=== PATIENT | male | born 1985 | race Caucasian/White ===

== ENCOUNTER 2022-10-28 08:40 | Emergency (ER) | payer OTHER, SELFPAY ==
[2022-10-28 08:46] VITALS: BP 142/96; PULSE 75; RESP 18; TEMP 36.4; O2SAT 98; BMI 34.4
--- NOTE | 2022-10-28 08:56 | ED_ITS ---
HPI - General Adult General Chief complaint: Allergic Reaction Stated complaint: ALLERGIC REACTION Time Seen by Provider: 10/28/22 08:55 Source: patient Mode of arrival: walk-in History of Present Illness HPI narrative: Patient is a 37-year-old male who is presenting to the Emergency Room today with circumoral paresthesias after patient took a tablet of levothyroxine. Patient stated this happen once previously, approximately 2 years ago when he took levothyroxine. Patient took Benadryl and Pepcid prior to arrival. 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 Patient was getting up this morning, getting ready for work when this occurred. Patient was a home with his . Patient took 20 mg of Pepcid and 25 mg of Benadryl. Patient stated he had numbness and tingling around his lips, felt swelling and puffiness around his mouth, states that his thought that he loss his nasolabial fold with some mild swelling. Patient also developed urticaria to the right side of his neck, arms, hands. Patient had no significant swelling to lips, tongue, no scratchy throat, patient did not feel like he was losing his airway. Patient was tolerating secretions well. Patient currently looks better with swelling, urticaria has dissipated, swelling has dissipated around his lips, patient has his nasolabial fold when he arrived to the Emergency Room. Patient has no urticaria or rash when I performed history and physical, approximately 30 minutes after patient had arrived. . All systems are negative except as noted/marked. All systems reviewed and otherwise negative. . Nurses note and vital signs reviewed and patient is not hypoxic. General: The patient appears well and in no apparent distress. Patient is resting comfortably on cart. Patient is not toxic, lethargic, or listless Skin: Warm, dry, no pallor noted. There is no rash noted. No petechiae, purpura. No mucous membrane involvement, no urticaria, rash noted. Head: Normocephalic, atraumatic Eye: Normal conjunctiva, no drainage, EOMI. PERRL Ears, Nose, Mouth, and Throat: oral mucosa is moist. Nares patent. Mouth without vesicles. Patient has no swelling to his lips, tongue, no angioedema. Patient tolerating secretions well without difficulty Cardiovascular: Regular Rate and Rhythm, no murmur, gallop, rub Respiratory: Patient is in no distress, no accessory muscle use, lungs are clear to auscultation, no wheezing, rales or rhonchi Back: non-tender, no CVA tenderness bilaterally to percussion. No CT LS midline pain GI: soft, no tenderness to palpation, no masses appreciated. No rebound, guarding, or rigidity noted. No flank pain bilateral, No distention Musculoskeletal: Patient has full range of motion of all of the extremities, no motor, sensory, or focal neurological deficits Neurological: A&O x3, normal speech Psychiatric: Cooperative Related Data Home Medications Medication Instructions Recorded Confirmed levothyroxine 100 mcg tablet 188 mcg PO [id number] 10/28/22 10/28/22 Previous Rx's Medication Instructions Recorded epinephrine 0.3 mg/0.3 mL 0.3 mg (0.3 mL) IM Q10M PRN 10/28/22 injection, auto-injector (EpiPen) anaphylaxis #2 ea prednisone 50 mg tablet 50 mg PO DAILY 5 days #5 tabs 10/28/22 Allergies Allergy/AdvReac Type Severity Reaction Status Date / Time bee pollen AdvReac Intermediate Verified 10/28/22 08:45 [facility] PFS Social History Smoking status: Current every day smoker Exam Constitutional Vital Signs, click to edit/add: Last Vital Signs Temp 97.6 F 10/28/22 08:46 Pulse 75 10/28/22 08:46 Resp 18 10/28/22 08:46 BP 142/96 H 10/28/22 08:46 Pulse Ox 98 10/28/22 08:46 O2 Del Method Room Air 10/28/22 08:46 Course Vital Signs Vital signs: Vital Signs Temperature 97.6 F 10/28/22 08:46 Pulse Rate 75 10/28/22 08:46 Respiratory Rate 18 10/28/22 08:46 Blood Pressure 142/96 H 10/28/22 08:46 Pulse Oximetry 98 10/28/22 08:46 Oxygen Delivery Method Room Air 10/28/22 08:46 Temperature 97.6 F 10/28/22 08:46 Pulse Rate 75 10/28/22 08:46 Respiratory Rate 18 10/28/22 08:46 Blood Pressure 142/96 H 10/28/22 08:46 Pulse Oximetry 98 10/28/22 08:46 Oxygen Delivery Method Room Air 10/28/22 08:46 Medical Decision Making [facility] Narrative Medical decision making narrative: EKG interpretation. Normal sinus rhythm at 67 beats a minute. Normal axis deviation. Artifact noted. QTC of 398. Patient was monitored for 2 hours. Patient was given 1 L of IV fluid. Patient was given a small dose of Pepcid along with site Medrol. Dictation was done at bedside the patient is a follow-up with twister doffer. Cleo ent was given a 5 day course of prednisone. Patient was given a prescription for EpiPen to have just in case. Patient was instructed went to use the EpiPen, especially if to organ systems are involved. Patient will use the prednisone if his rash or symptoms return tonight or tomorrow, otherwise he'll not take it and hold onto the prescription. Patient will follow-up with PCP. Patient in with a comfortable going home. No questions at discharge. Patient was observed for 2 hours. Discharge Plan Discharge Chief Complaint: Allergic Reaction Clinical Impression: Urticaria, Allergic reaction Patient Disposition: Home, Self-Care Condition: Fair Prescriptions / Home Meds: New prednisone 50 mg tablet 50 mg PO DAILY 5 Days Qty: 5 0RF epinephrine [EpiPen] 0.3 mg/0.3 mL auto-injector 0.3 mg IM Q10M PRN (Reason: anaphylaxis) Qty: 2 0RF Rx Instructions: for 2 doses No Action levothyroxine 100 mcg tablet 188 mcg PO [id number] Instructions: Urticaria (ED), Acute Rash (ED), General Allergic Reaction (ED), Allergy Testing (ED) Additional Instructions: Use Claritin or Zyrtec in the morning along with Pepcid. Use is Benadryl, Claritin, Zyrtec and Pepcid at nighttime. Is very safe to stop taking the levothyroxin and follow-up with here prescriber for further recommendations on whether you continue to take the medication or switching to a different brand name sinus generic name. However, urine high doses of the levothyroxine any need that as well, we had discussed the risk and benefits of continuing to take her medication or not. Use EpiPen if your having significant difficulty breathing, Significant swelling to your tongue, lips, if he ever rash, or if he had to organ systems involved. If rash, paresthesias circumorally return, Today or tomorrow, start taking the 5 day burst of prednisone as well. If the rash and sensation does not return tonight or tomorrow, hold on to the prednisone to use in the future if needed. Is imperative the follow-up with PCP in follow-up with the twister doffer for additional testing. Stand Alone Forms: Portal Instructions Referrals: Teresa Mensah [Primary Care Provider] - 1 week
[2022-10-28] MEDS: 0.9 % SODIUM CHLORIDE 1,000 ML 1000 ML IV (09:08)
[2022-10-28] MEDS: FAMOTIDINE/PF 20 MG/2 ML VIAL IV (09:08)
[2022-10-28] MEDS: METHYLPREDNISOLONE SOD SUCC PF 125 MG/2 ML VIAL IVP (09:08)
--- NOTE | 2022-10-28 10:08 | ECG_ITS ---
[facility] Test Date: 2022-10-28 Pat Name: MITZY JASSO Department: Room: - Gender: Male Internal Grinder: : 1985 Requested By: [id number] Order Number: [id number] Reading MD: NANCY FLANAGAN Measurements Intervals Alexander Rate: 67 P: 17 FL: 152 QRS: 54 QRSD: 82 T: 19 QT: 382 QTc: 398 Interpretive Statements 1100 Sinus rhythm 8102 Low QRS voltage in chest leads 9120 atypical ECG No previous ECG available for comparison Electronically Signed On 10-29-2022 12:34:27 EDT by NANCY FLANAGAN
[2022-10-28 11:08] VITALS: BP 130/88; PULSE 58; RESP 15; O2SAT 96
== END 2022-10-28 11:11 | disposition home or self-care (01) ==
PROVIDERS: Emergency Provider Emergency Medicine; PCP Nurse Practitioner
DX: L50.0 Allergic urticaria (principal); T38.1X5A Adverse effect of thyroid hormones and substitutes, initial encounter; F17.210 Nicotine dependence, cigarettes, uncomplicated
CPT/HCPCS: 93005; 96374; 96375; 99284; J2930

== ENCOUNTER 2023-01-09 00:10 | Emergency (ER) | payer OTHER, SELFPAY ==
[2023-01-09 00:14] VITALS: BP 152/92; PULSE 105; RESP 16; TEMP 36.8; O2SAT 97; BMI 35.3
[2023-01-09 00:25] VITALS: O2SAT 97
--- NOTE | 2023-01-09 00:25 | PC.NURSE ---
Pt reports swelling in lips and eyes, fullness in ears. Pt has had multiple episodes of allergic rx or angioedema in the past. Pt took Benadryl and Pepcid [employer], reports increased relief since taking medication at home. Upon assessment pts throat is red and swollen, pt moving air sufficiently. Pt denies SOB.
--- NOTE | 2023-01-09 00:38 | ED.ALLEREA1 ---
HPI - Allergic Reaction General Chief complaint: Allergic Reaction Stated complaint: FACE SWELLING Time Seen by Provider: 01/09/23 00:29 Source: patient Mode of arrival: walk-in History of Present Illness HPI narrative: history of allergic reactions with tingling of his hands and swelling of his lips. Has occurred 4 times in the past. No clear etiology. Symptoms started tonight including swelling of his lips. He took 100mg benadry and 40 mg pepcid. Had his epi pen ready but did not use. Now that he is here the swelling has decreased but not resolve. States he is now able to talk normally and no longer itching. No dyspnea or joint pain. his only maintenance medication is Levothyroxine complaint: Reports allergic reaction Related Data Home Medications Medication Instructions Recorded Confirmed levothyroxine 100 mcg tablet 188 mcg PO [id number] 10/28/22 01/09/23 Previous Rx's Medication Instructions Recorded epinephrine 0.3 mg/0.3 mL 0.3 mg (0.3 mL) IM Q10M PRN 10/28/22 injection, auto-injector (EpiPen) anaphylaxis #2 ea Allergies Allergy/AdvReac Type Severity Reaction Status Date / Time bee pollen AdvReac Intermediate Verified 01/09/23 00:17 Review of Systems ROS Status of ROS 10 or more systems reviewed and unremarkable except as noted in history and below PFSH PFS Social History Smoking status: Never smoker Exam Constitutional Vital Signs, click to edit/add: Last Vital Signs Temp 98.2 F 01/09/23 00:14 Pulse 105 H 01/09/23 00:14 Resp 16 01/09/23 00:14 BP 152/92 H 01/09/23 00:14 Pulse Ox 97 01/09/23 00:25 O2 Del Method Room Air 01/09/23 00:25 Common normals: no apparent distress, average body habitus, oriented x3, healthy appearing, alert and well nourished Eye Common normals: EOMs intact bilaterally and conjunctivae normal Respiratory Common normals: normal respiratory effort, no retractions, no use of accessory muscles and clear to auscultation bilaterally Cardio Common normals: regular rate, regular rhythm, S1 normal heart sound and S2 normal heart sound Extremity Common normals: normal to inspection and full ROM Neuro Common normals: oriented x3, CN's II-XII intact bilaterally, moves all extremities and no focal motor deficits Psych Appearance: grossly normal Course Vital Signs Vital signs: Vital Signs Temperature 98.2 F 01/09/23 00:14 Pulse Rate 105 H 01/09/23 00:14 Respiratory Rate 16 01/09/23 00:14 Blood Pressure 152/92 H 01/09/23 00:14 Pulse Oximetry 97 01/09/23 00:14 Oxygen Delivery Method Room Air 01/09/23 00:14 Temperature 98.2 F 01/09/23 00:14 Pulse Rate 105 H 01/09/23 00:14 Respiratory Rate 16 01/09/23 00:14 Blood Pressure 152/92 H 01/09/23 00:14 Pulse Oximetry 97 01/09/23 00:25 Oxygen Delivery Method Room Air 01/09/23 00:25 MDM - Allergic Reaction MDM Narrative Medical decision making narrative: patient presents with acute systemic allergic reaction with tingling of his hands and swelling of his lips. He treated himself with benadryl and pepcid. By the time he arrived to the department his swelling has decreased significantly and his speech had returned to normal. No rash is present at this time. Given dose of solumedrol in the department and discharged to follow up with his doctor Discharge Plan Discharge Chief Complaint: Allergic Reaction Clinical Impression: Allergic reaction Patient Disposition: Home, Self-Care Prescriptions / Home Meds: No Action levothyroxine 100 mcg tablet 188 mcg PO [id number] epinephrine [EpiPen] 0.3 mg/0.3 mL auto-injector 0.3 mg IM Q10M PRN (Reason: anaphylaxis) Qty: 2 0RF Rx Instructions: for 2 doses Instructions: General Allergic Reaction (ED) Stand Alone Forms: Portal Instructions Referrals: Teresa Mensah NP [Primary Care Provider] - 1 week
[2023-01-09] MEDS: METHYLPREDNISOLONE SOD SUCC PF 125 MG/2 ML VIAL IVP (00:49)
[2023-01-09 01:02] VITALS: PULSE 88; RESP 16; O2SAT 98
[2023-01-09 01:19] VITALS: BP 140/80; PULSE 78; RESP 18; O2SAT 96
== END 2023-01-09 01:20 | disposition home or self-care (01) ==
PROVIDERS: Emergency Provider Internal Medicine; PCP Nurse Practitioner
DX: T78.40XA Allergy, unspecified, initial encounter (principal); X58.XXXA Exposure to other specified factors, initial encounter
CPT/HCPCS: 96374; 99284; J2930

== ENCOUNTER 2023-01-18 11:53 | Outpatient (OUT) | payer OTHER, SELFPAY ==
[2023-01-18 12:06] LABS: Basophils Absolute Auto 0.1 10^3/uL (0.0-0.1); Basophils Percent Auto 1.1 % (0.2-2.0); Eosinophils Absolute Auto 0.2 10^3/uL (0.0-0.7); Eosinophils Percent Auto 2.8 % (0.9-7.0); Hematocrit 40.4 % (42.0-54.0); Hemoglobin 13.8 g/dL (14.0-18.0); Immature Granulocytes Abs Auto 0.01 10^3/uL (0.00-0.03); Immature Granulocytes Pct Auto 0.2 % (0.0-0.5); Lymphocytes Absolute Auto 2.1 10^3/uL (1.2-3.8); Lymphocytes Percent Auto 38.7 % (20.5-60.0); Mean Corpuscular HGB Conc 34.2 g/dL (29.9-35.2); Mean Corpuscular Hemoglobin 31.7 pg (25.9-34.0); Mean Corpuscular Volume 92.7 fL (80.0-94.0); Mean Platelet Volume 9.3 fL (9.5-13.5); Monocytes Absolute Auto 0.5 10^3/uL (0.3-0.8); Neutrophils Absolute Auto 2.6 10^3/uL (1.4-6.5); Neutrophils Percent Auto 48.2 % (43.0-75.0); Platelet Count 212 10^3/uL (150-450); Red Blood Count 4.36 10^6/uL (4.70-6.10); Red Cell Distribution Width 11.9 % (11.0-15.0); White Blood Count 5.4 10^3/uL (4.0-11.0)
[2023-01-18 12:08] LABS: Bilirubin Urine NEGATIVE (NEGATIVE); Blood Urine NEGATIVE (NEGATIVE); Clarity Urine CLEAR (CLEAR); Color Urine LT. YELLOW (YELLOW); Glucose Urine UA NEGATIVE (NEGATIVE); Ketones Urine NEGATIVE (NEGATIVE); Leukocyte Esterase Urine NEGATIVE (NEGATIVE); Nitrite Urine NEGATIVE (NEGATIVE); Protein Urine NEGATIVE (NEG/TRACE); Specific Gravity Urine >=1.030 (1.005-1.025); Urobilinogen Urine 0.2 EU/dL (0.2-1.0)
[2023-01-18 12:09] LABS: Urine Microscopic Indicated YES
[2023-01-18 12:15] LABS: Bacteria Urine NONE SEEN #/HPF (NONE SEEN); Cast Seen? NONE SEEN #/LPF (NONE SEEN); Crystals Seen? None Seen #/HPF (None Seen); Mucus Urine NONE SEEN (NONE SEEN); RBC Urine NONE SEEN #/HPF (0-2); Squamous Epithelial Cell Urine RARE #/LPF (NONE/RARE); Urine Culture Indicated NO; WBC Urine NONE SEEN #/HPF (NONE SEEN)
[2023-01-18 15:03] LABS: Alanine Aminotransferase 54 U/L (16-63); Albumin Globulin Ratio 1.2; Albumin Level 4.1 g/dL (3.4-5.0); Alkaline Phosphatase 83 U/L (46-116); Anion Gap 8.2; Aspartate Amino Transferase 25 U/L (15-37); BUN Creatinine Ratio 13.1; Bilirubin Direct 0.1 mg/dL (0.0-0.2); Bilirubin Total 0.5 mg/dL (0.2-1.0); Calcium 9.1 mg/dL (8.5-10.1); Carbon Dioxide 31.8 mmol/L (21.0-32.0); Chloride 102 mmol/L (98-107); Chol HDL Ratio 4.9; Cholesterol 210 mg/dL (<=200); Estimated GFR (African America >60 (>=60); Estimated GFR (Non-African Ame >60 (>=60); Globulin 3.5 g/dL; Glucose 101 mg/dL (74-106); HDL Cholesterol 43 mg/dL (40-60); Sodium 138 mmol/L (136-145); Thyroid Stimulating Hormone 6.297 uIU/mL (0.358-3.740); Total Protein 7.6 g/dL (6.4-8.2); Triglycerides 125 mg/dL (<=150)
== END 2023-01-18 11:54 | disposition home or self-care (01) ==
LOC: LAB 11:53
PROVIDERS: PCP Nurse Practitioner; Visit Provider Nurse Practitioner
DX: L50.9 Urticaria, unspecified (principal); E03.9 Hypothyroidism, unspecified; R33.9 Retention of urine, unspecified
CPT/HCPCS: 36415; 80048; 80061; 80076; 81001; 84439; 84443; 85025

== ENCOUNTER 2023-02-08 02:45 | Emergency (ER) | payer OTHER, SELFPAY ==
[2023-02-08 02:49] VITALS: BP 115/83; PULSE 94; RESP 16; TEMP 36.5; O2SAT 98
--- NOTE | 2023-02-08 02:51 | ED.GENADUL1 ---
HPI - General Adult General Chief complaint: Allergic Reaction Stated complaint: RASH ALLERGIC REACTION Time Seen by Provider: 02/08/23 02:48 History of Present Illness HPI narrative: This 37-year-old male who has had multiple episodes of ALLERGIC reactions to an unknown antigen presents for evaluation of hives with itching on his arms back and buttocks. He states that he was at the emergency department in [place] earlier this evening for an ALLERGIC reaction and was given Solu-Medrol, Pepcid, Benadryl and subcutaneous epinephrine. He was monitored for a period of time and was deemed safe for discharge home. On the way home from [place] to [place] he started developing hives again on his back and buttocks. He states he is tired and afraid to go to sleep because he is afraid his airway is going to close. He states his throat feels somewhat scratchy. He is not having a difficulty breathing or swallowing at this time. He is scheduled to see an environmental property assessor in several weeks. 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 He has not had any change in his diet or medications. He denies that he is under a lot of stress. He has recently been ill with nausea, vomiting and diarrhea. He is having some abdominal cramps at this time. He denies any chest pain. He does not drink or smoke. 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 He also states that he has recently been constipated and is now having diarrhea that is yellow and watery, he states it looks like C diff but does not have the same smell as C Diff. He denies any blood in his stool. Related Data Home Medications Medication Instructions Recorded Confirmed levothyroxine 100 mcg tablet 188 mcg PO [id number] 10/28/22 02/08/23 Previous Rx's Medication Instructions Recorded epinephrine 0.3 mg/0.3 mL 0.3 mg (0.3 mL) IM Q10M PRN 10/28/22 injection, auto-injector (EpiPen) anaphylaxis #2 ea Allergies Allergy/AdvReac Type Severity Reaction Status Date / Time bee pollen AdvReac Intermediate Verified 02/08/23 02:55 Review of Systems ROS Status of ROS 10 or more systems reviewed and unremarkable except as noted in history and below PFSH PFSH Social History Smoking status: Never smoker Exam Narrative Exam Narrative: Nurses note and vital signs reviewed and patient is not hypoxic. General:ALert, anxious, nontoxic male resting come to bland the stretcher, no respiratory distress, he is speaking in complete sentences Skin: Warm, dry, no pallor noted. Urticarial rash on left forearm, back and buttocks Head: Normocephalic, atraumatic Eye: Normal conjunctiva, no drainage, EOMI. PERRL Ears, Nose, Mouth, and Throat: oral mucosa is dry, there is no swelling of the tongue, uvula or pharyngeal soft tissues Neck: Supple, no stridor Cardiovascular: Regular Rate and Rhythm Respiratory: Patient is in no distress, no accessory muscle use, lungs are clear to auscultation, no wheezing, rales or rhonchi Back: non-tender, no CVA tenderness bilaterally to percussion. GI: Normal bowel sounds, no tenderness to palpation, no masses appreciated. No rebound, guarding, or rigidity noted. Musculoskeletal: The patient has no evidence of calf tenderness, no pitting edema, symmetrical pulses noted bilaterally Neurological: A&O x4, normal speech Psychiatric: Cooperative Constitutional Vital Signs, click to edit/add: Last Vital Signs Temp 97.7 F 02/08/23 02:49 Pulse 94 H 02/08/23 02:49 Resp 16 02/08/23 02:49 BP 115/67 02/08/23 04:30 Pulse Ox 98 02/08/23 02:49 O2 Del Method Room Air 02/08/23 02:49 Course Vital Signs Vital signs: Vital Signs Temperature 97.7 F 02/08/23 02:49 Pulse Rate 94 H 02/08/23 02:49 Respiratory Rate 16 02/08/23 02:49 Blood Pressure 115/83 02/08/23 02:49 Pulse Oximetry 98 02/08/23 02:49 Oxygen Delivery Method Room Air 02/08/23 02:49 Temperature 97.7 F 02/08/23 02:49 Pulse Rate 94 H 02/08/23 02:49 Respiratory Rate 16 02/08/23 02:49 Blood Pressure 115/67 02/08/23 04:30 Pulse Oximetry 98 02/08/23 02:49 Oxygen Delivery Method Room Air 02/08/23 02:49 Medical Decision Making [facility] Narrative Medical decision making narrative: 37-year-old male who has recently been seen multiple times for idiopathic ALLERGIC reactions requiring IV steroids, Pepcid and Benadryl as well as several doses of subcutaneous epinephrine presents for evaluation of generalized hives. He has been having ALLERGIC reactions for the past several years. The etiology of these ALLERGIC reactions has not been elucidated. He is not taking any new medications, he has no new foods that he has been eating and denies excessive stress in his life. The patient was recently seen earlier for an ALLERGIC reaction at [facility] and was medicated with steroids and Pepcid. He had RAD taken Benadryl at home once he started having an ALLERGIC reaction earlier in the evening. On his way home from [facility] he states that his throat felt kind of scratching he was concerned that he may be developing angioedema. His oral airway is stable with no swelling of the tongue, uvula or pharyngeal soft tissues. His mucous membranes are dry likely related to the Benadryl he has been receiving. He did have some resolving hives on his back and buttocks and left arm. While in the emergency department the hives became more severe encompassing both arms and hands started swelling. He was given 0.3 mg of subcutaneous epinephrine at that time with clinical improvement. He was also medicated in emergency department with Decadron, IV Pepcid and IV Benadryl. Routine labs are reviewed. He has a white count of 16. This is likely related to the IV steroids he has been receiving but he has also been having diarrhea. I ordered a noncontrast CT scan of the abdomen and pelvis to further evaluate due to the diarrhea and ALLERGIC reaction. His electrolytes are normal with the exception of an elevated glucose at 174, likely related to his recent steroid administration. Respiratory panel was added on as viral illnesses can cause the etiology of ALLERGIC/anaphylactoid reactions and he is a nurse. He has remained hemodynamically stable with no airway compromise. He has an appointment with an environmental property assessor in several weeks. CT scan of the abd/pelvis w/o contrast shows some urinary wall thickening but is otherwise normal. UA does not show any sign of active infection. On re-evaluation, his symptoms are continually improving, he still has no airway compromise or swelling, lungs are clear, hives are resolving. He does admit that the majority of his 'allergic' reactions are related to using the bathroom to have a bowel movement. He denies a history of encopresis as a child or other GI related illnesses. I encouraged him to keep a very detailed diary of any time he has an episode of hives or allergic reactions and the situation as well as environmental triggers. Respiratory panel, despite the patients diarrhea is normal. Medical Records Medical records narrative: [facility] [place] [id number] CT Scan Report Signed Patient: MITZY JASSO MR#: [id number] : 1985 Acct:[id number] Age/Sex: 37 / M ADM Date: 02/08/23 Loc: ER Attending Dr: Ordering Physician: Alessandra Davenport Date of Service: 02/08/23 Procedure(s): CT abdomen pelvis wo con Accession Number(s): [id number] cc: Teresa Mensah [employer]~ [facility] [place] [address] Patient Name: MITZY JASSO MRN: [id number] date: 1985 Sex: M Assigned Patient Location: ER Current Patient Location: ER Accession/Order Number: [id number] Exam Date: 02/08/2023 04:11 Report Date: 02/08/2023 04:59 At the request of: ALESSANDRA DAVENPORT Procedure: CT abdomen pelvis wo con EXAM: CT abdomen pelvis wo con HISTORY: abd bloating COMPARISON: None. TECHNIQUE: Noncontrast axial CT images through the abdomen and pelvis were obtained with coronal and sagittal reformats. Dose reduction techniques were achieved by using automated exposure control and/or adjustment of mA and/or kV according to patient size and/or use of iterative reconstruction technique. FINDINGS: A calcified granuloma is seen in the right lower lobe. A calcified granuloma is seen in the left lower lobe. Abdomen: Please note that the sensitivity for detection of focal lesions or vascular disease is markedly reduced without intravenous contrast. The liver and spleen are unremarkable. There is no intra or extrahepatic biliary duct dilatation. The gallbladder is unremarkable. There punctate nonobstructive renal calculi. Otherwise, the pancreas, adrenal glands, kidneys, and bowel loops, including the appendix, are unremarkable. There is no mesenteric or retroperitoneal lymphadenopathy. Pelvis: The bladder demonstrates wall thickening with perivesicular fat stranding. The rectum is unremarkable. There is no iliac or inguinal lymphadenopathy. Bone windows show no aggressive osseous lesions. CT/CT abdomen pelvis wo con IMPRESSION: 1. No evidence of bowel obstruction. 2. Nonobstructive renal calculi. 3. Normal appendix. 4. Urinary bladder wall thickening. Please correlate with urinalysis for infection. Electronically authenticated by: Francine CHEEMA Date: 02/08/2023 04:59 Lab Data Labs: Lab Results 02/08/23 02/08/23 02/08/23 Range/Units 02:50 03:50 04:00 WBC 16.0 H (4.0-11.0) 10^3/uL RBC 5.38 (4.70-6.10) 10^6/uL Hgb 17.0 (14.0-18.0) g/dL Hct 49.3 (42.0-54.0) % MCV 91.6 (80.0-94.0) fL MCH 31.6 (25.9-34.0) pg MCHC 34.5 (29.9-35.2) g/dL RDW 11.9 (11.0-15.0) % Plt Count 345 (150-450) 10^3/uL MPV 9.7 (9.5-13.5) fL Neut % (Auto) 88.2 H (43.0-75.0) % Lymph % (Auto) 7.1 L (20.5-60.0) % Smith % (Auto) 3.9 (1.7-12.0) % Eos % (Auto) 0.4 L (0.9-7.0) % Baso % (Auto) 0.1 L (0.2-2.0) % Neut # (Auto) 14.1 H (1.4-6.5) 10^3/uL Lymph # (Auto) 1.1 L (1.2-3.8) 10^3/uL Smith # (Auto) 0.6 (0.3-0.8) 10^3/uL Eos # (Auto) 0.1 (0.0-0.7) 10^3/uL Baso # (Auto) 0.0 (0.0-0.1) 10^3/uL Abs Immat Gran (auto) 0.05 H (0.00-0.03) 10^3/uL Imm/Tot Granulo (auto) 0.3 (0.0-0.5) % Sodium 141 (136-145) mmol/L Potassium 3.8 (3.5-5.1) mmol/L Chloride 104 (98-107) mmol/L Carbon Dioxide 27.5 (21.0-32.0) mmol/L Anion Gap 13.3 BUN 11.0 (7.0-18.0) mg/dL Creatinine 1.09 (0.70-1.30) mg/dL Est GFR ( Amer) >60 (>=60) Est GFR (Non-Af Amer) >60 (>=60) BUN/Creatinine Ratio 10.1 Glucose 174 H (74-106) mg/dL Calcium 9.0 (8.5-10.1) mg/dL Urine Color Yellow (YELLOW) Urine Clarity Clear (CLEAR) Urine pH 5.5 (5.0-9.0) Ur Specific [place] >=1.030 A (1.005-1.025) Urine Protein Trace (NEG/TRACE) mg/dL Urine Glucose (UA) Negative (NEGATIVE) mg/dL Urine Ketones Trace A (NEGATIVE) mg/dL Urine Occult Blood Negative (NEGATIVE) Urine Nitrite Negative (NEGATIVE) Urine Bilirubin Small A (NEGATIVE) Urine Urobilinogen 1.0 (0.2-1.0) EU/dL Ur Leukocyte Esterase Negative (NEGATIVE) Urine RBC 0-2 (0-2) #/HPF Urine WBC 0-2 A (NONE SEEN) #/HPF Ur Squamous Epith Cells None seen (NONE/RARE) #/LPF Urine Crystals None seen (None Seen) #/HPF Urine Bacteria Small A (NONE SEEN) #/HPF Urine Casts None seen (NONE SEEN) #/LPF Urine Mucus Large A (NONE SEEN) Adenovirus (PCR) Not detected (NOT DETECTE) C. pneumoniae DNA (PCR) Not detected (NOT DETECTE) Coronavirus Type OC43 Not detected (NOT DETECTE) Coronavirus Type HKU1 Not detected (NOT DETECTE) Coronavirus Type 229E Not detected (NOT DETECTE) Coronavirus Type NL63 Not detected (NOT DETECTE) Human Metapneumovir PCR Not detected (NOT DETECTE) M. pneumoniae (PCR) Not detected (NOT DETECTE) Parainfluenza PCR Not detected (NOT DETECTE) Parainfluenza 2 (PCR) Not detected (NOT DETECTE) Parainfluenza 3 (PCR) Not detected (NOT DETECTE) Parainfluenza 4 (PCR) Not detected (NOT DETECTE) RSV (RT-PCR) Not detected (NOT DETECTE) Entero/Rhino (PCR) Not detected (NOT DETECTE) SARS-CoV-2 (PCR) Not detected (NOT DETECTE) Bordetella pertussis (PCR) Not detected (NOT DETECTE) B parapertussis DNA PCR Not detected (NOT DETECTE) Influenza Type A (PCR) Not detected (NOT DETECTE) Influenza Type B (PCR) Not detected (NOT DETECTE) Discharge Plan Discharge Chief Complaint: Allergic Reaction Clinical Impression: Urticaria, Allergic reaction Patient Disposition: Home, Self-Care Time of Disposition Decision: 05:32 Condition: Good Prescriptions / Home Meds: No Action levothyroxine 100 mcg tablet 188 mcg PO [id number] epinephrine [EpiPen] 0.3 mg/0.3 mL auto-injector 0.3 mg IM Q10M PRN (Reason: anaphylaxis) Qty: 2 0RF Rx Instructions: for 2 doses Instructions: Urticaria (ED), General Allergic Reaction (ED), Allergy Testing (ED) Stand Alone Forms: Portal Instructions Referrals: Teresa Mensah NP [Primary Care Provider] - 1 week
--- OUTSIDE RECORDS SUMMARY | 2023-02-08 02:51 | XMS_ITS | CCD ---
Author Name Unknown Address [address] [place] [address] Organization [facility] Care Team Providers Care Coal Digger Name Role Phone Alex Delgado Unavailable KIT Wallace Attending Provider NO FAMILY, PHYSICIAN Primary Care Provider Unava ilable SATHYA SMITH Primary Care Unavailable NGOC, AHMARaul Admitting Unavailable NGOC, AHMAD Consulting Unavailable ALLIE GROSSMAN Attending Unavailable ANNITA AGUILERA Attending Unavailable SATHYA SMITH Primary Care Unavailable ANNITA AGUILERA Admitting Unavailable ANNITA AGUILERA Consulting Unavailable TERESA SMITH Primary Care Physician TERESA SMITH Referring Unavailable Deven YATES Attending Unavailable TERESA SMITH Unavailable Allergies Allergy Classification Reported Allergen(s) Allergy Type Date of Onset Reaction(s) Facility (1 source) bee venom Drug allergy (disorder) 4 [facility] Repository (1 source) No Known Medication Allergies; Translations: [No Known Medication Allergies] Propensity to adverse reactions (disorder) [facility] Repository Medications Current Medications Medication Drug Class(es) Dates Sig (Normalized) Sig (Original) ketorolac tromethamine 10 mg oral tablet (1 source) Nonsteroidal Anti-inflammatory Drug, Cyclooxygenase Inhibitor Ketorolac Tromethamine 10 MG Oral for 4 Active Thyroxine (2 sources) l-Thyroxine Start: 04-18-2022 levothyroxine Refills(s) 0 Start Date: 04/18/22 Status: Ordered Levothroid Activ e methylPREDNISolone 4 mg oral tablet (1 source) Corticosteroid Start: 10-08-2020 Medrol 4 MG as directed Orally Oct, Active naproxen 500 mg delayed release oral tablet (1 source) Nonsteroidal Anti-inflammatory Drug take 1 tablet by mouth every twelve hours Naproxen 500 MG take 1 tablet by mouth every 12 hours for 30 Active traMADol hydrochloride 50 mg oral tablet (1 source) Opioid Agonist traMADol HCl 50 MG Oral for 4 Active Vitamin D (1 source) Vitamin D Active Problems Active Problems Problem Classification Problem Date Documented Date Episodic/Chronic Administrative/socia l admission (5 sources) Encounter for pre-employment examination; Translations: [Dietary counseling and surveillance] Onset: 2 Episodic Disorders of lipid metabolism (1 source) Hyperlipidemia 04-15-2022 Chronic Genitourinary symptoms and ill-defined conditions (2 sources) Nocturia; Translations: [Nocturia] Onset: 3 Episodic Joint disorders and dislocations; trauma-related (2 sources) Internal derangement of right knee; Translations: [Unspecified internal derangement of right knee] Onset: 1 Resolved: 1 Chronic Other male genital disorders (2 sources) Pain in testicle; Translations: [Testicular pain, unspecified] Onset: 3 Episodic Other non-traumatic joint disorders (1 source) Joint pain 04-15-2022 Episodic Other nutritional; endocrine; and metabolic disorders (1 source) Obesity, unspecified; Translations: [OBESITY UNSPECIFIED] Onset: 2 Chronic Other screening for suspected conditions (not mental disorders or infectious disease) (1 source) Hypotestosteronism 04-15-2022 Episodic Residual codes; unclassified (1 source) Obstructive sleep apnea syndrome 04-15-2022 Chronic Thyroid disorders (5 sources) Hypothyroidism, unspecified; Translations: [Hypothyroidism] Onset: 2 Chronic Past or Other Problems Problem Classification Problem Date Documented Da te Episodic/Chronic Other connective tissue disease (1 source) Patellar tendinitis, right knee Onset: 12-28-2020 Resolved: 12-28-2020 Episodic Other non-traumatic joint disorders (1 source) Pain in right knee Onset: 12-28-2020 Resolved: 12-28-2020 Episodic Results Test Name Value Interpretation Reference Range Facility RAD - Ultrasound Reporton RAD - Ultrasound Report [id number] #1.00CD:127 Normal [facility] Ambulatory Visit Summaryon 0 04-18-2022 Ambulatory Visit Summary MITZY JASSO :1985 Visit Date:04/18/2022 Ambulatory Visit Instructions Your Diagnosis Nocturia Testicular pain Tests Performed Urnls Dip Stick Auto w/o Microscopy POC 83248 Your Care Team Attending Physician - Deven YATES MD Primary Care Physician - TERESA SMITH CNP Referring Physician - TERESA SMITH CNP This Is Your Medications List Contact prescribing physician if questions or concerns levothyroxine Discharge Vitals Blood Pressure 138/74 Height 184 cm Height 72 in Weight 119 kg Weight 261.8 lb BMI 35.15 What to do next You Need to Schedule the Following Appointments Follow Up with PAULINE NAVAS, LANA Aldridge When: Where: [facility] [address] [place] [address]- Medications What When Instructions Unchanged levothyroxine Contact prescribing physician if questions or concerns Test Results Urnls Dip Stick Auto w/o Microscopy POC 19397 (04/18/2022) Bilirubin Urine Dipstick - Negative Blood Urine Dipstick - Negative Glucose Urine Dipstick - Negative Ketones Urine Dipstick - Negative Leukocytes Urine Dipstick - Negative Nitrite Urine Dipstick - Negative Protein Urine Dipstick - Trace Specific Stroud Urine Dipstick - >=1.030 Urine Appearance Urine Dipstick - Clear Urine Color Urine Dipstick - Yellow Urobilinogen Urine Dipstick - Normal 0.2-1 EU/dl pH Urine Dipstick - 5.5 Allergies No Known Medication Allergies Problems Ongoing - Any problem that you are currently receiving treatment for. Arthralgia Hyperlipidemia Hypothyroidism Nocturia Obstructive sleep apnea Testicular pain Testosterone deficiency Education Materials Testicular Self-Exam A self-examination of your testicles (testicular self-exam) involves looking at and feeling your testicles for abnormal lumps or swelling. Several things can cause swelling, lumps, or pain in your testicles. Some of these causes are: ? Injuries. ? Inflammation. ? Infection. ? Buildup of fluids around your testicle (hydrocele). ? Twisted testicles (testicular torsion). ? Testicular cancer. Why is it important to do a testicular self-exam? Self-examination of the testicles and the left and right groin areas may be recommended if you are at risk for testicular cancer. Your groin is where your lower abdomen meets your upper thighs. You may be at risk for testicular cancer if you have: ? An undescended testicle (cryptorchidism). ? A history of previous testicular cancer. ? A family history of testicular cancer. How to do a testicular self-exam The testicles are easiest to examine after a warm bath or shower. They are more difficult to examine when you are cold. This is because the muscles attached to the testicles retract and pull them up higher or into the abdomen. A normal testicle is egg-shaped and feels firm. It is smooth and not tender. The spermatic cord can be felt as a firm, spaghetti-like cord at the back of your testicle. Look and feel for changes ? Stand and hold your penis away from your body. ? Look at each testicle to check for lumps or swelling. ? Roll each testicle between your thumb and forefinger, feeling the entire testicle. Feel for: ? Lumps. ? Swelling. ? Discomfort. ? Check the groin area between your abdomen and upper thighs on both sides of your body. Look and feel for any swelling or bumps that are tender. These could be enlarged lymph nodes. Contact a health care provider if: ? You find any bumps or lumps, such as a small, hard, pea-sized lump. ? You find swelling, pain, or soreness. ? You see or feel any other changes in your testicles. Summary ? A self-examination of your testicles (testicular self-exam) involves looking at and feeling your testicles for any changes. ? Self-examination of the testicles and the left and right groin areas may be recommended if you are at risk for testicular cancer. ? You should check each of your testicles for lumps, swelling, or discomfort. ? You should check for swelling or tender bumps in your groin area between your lower abdomen and upper thighs. This information is not intended to replace advice given to you by your health care provider. Make sure you discuss any questions you have with your health care provider. Document Released: 05/01/2001 Document Revised: 05/16/2019 Document Reviewed: 12/19/2016 Elsevier Patient Education ? 2019 [employer]. Normal [facility] Patient Educationon 04-19-19 Patient Education Urology Testicular Self-Exam A self-examination of your testicles (testicular self-exam) involves looking at and feeling your testicles for abnormal lumps or swelling. Several things can cause swelling, lumps, or pain in your testicles. Some of these causes are: ? Injuries. ? Inflammation. ? Infection. ? Buildup of fluids around your testicle (hydrocele). ? Twisted testicles (testicular torsion). ? Testicular cancer. Why is it important to do a testicular self-exam? Self-examination of the testicles and the left and right groin areas may be recommended if you are at risk for testicular cancer. Your groin is where your lower abdomen meets your upper thighs. You may be at risk for testicular cancer if you have: ? An undescended testicle (cryptorchidism). ? A history of previous testicular cancer. ? A family history of testicular cancer. How to do a testicular self-exam The testicles are easiest to examine after a warm bath or shower. They are more difficult to examine when you are cold. This is because the muscles attached to the testicles retract and pull them up higher or into the abdomen. A normal testicle is egg-shaped and feels firm. It is smooth and not tender. The spermatic cord can be felt as a firm, spaghetti-like cord at the back of your testicle. Look and feel for changes ? Stand and hold your penis away from your body. ? Look at each testicle to check for lumps or swelling. ? Roll each testicle between your thumb and forefinger, feeling the entire testicle. Feel for: ? Lumps. ? Swelling. ? Discomfort. ? Check the groin area between your abdomen and upper thighs on both sides of your body. Look and feel for any swelling or bumps that are tender. These could be enlarged lymph nodes. Contact a health care provider if: ? You find any bumps or lumps, such as a small, hard, pea-sized lump. ? You find swelling, pain, or soreness. ? You see or feel any other changes in your testicles. Summary ? A self-examination of your testicles (testicular self-exam) involves looking at and feeling your testicles for any changes. ? Self-examination of the testicles and the left and right groin areas may be recommended if you are at risk for testicular cancer. ? You should check each of your testicles for lumps, swelling, or discomfort. ? You should check for swelling or tender bumps in your groin area between your lower abdomen and upper thighs. This information is not intended to replace advice given to you by your health care provider. Make sure you discuss any questions you have with your health care provider. Document Released: 05/01/2001 Document Revised: 05/16/2019 Document Reviewed: 12/19/2016 [employer] Patient Education ? 2019 [employer]. [facility] Physician Referralon 023 Physician Referral [id number] #1.00CD:127 Normal [facility] Urology Office/Clinic Noteon 04-18-2022 Urology Office/Clinic Note Chief Complaint Pt is here to discusss urinary issues HPI Staff Patient is a referral from [facility] for Erectile dysfunction. Patient states he tried a cream on his penis just to try in the March and it made him numb for 5 days. Patient states he tried used it just for fun. Patient states he really does not need any meds for ED. He just wants to talk about urinary issues and testicle pain. Patient states testicle pain is on the bottom of testicles and started over a year ago. No injury's. Patient states also he urinates 5x a night. Patient states nocturia started 5 months ago. Dysuria: no Incomplete bladder emptying: no Hematuria: no Frequency: every 2 hours Urgency: no Nocturia: 5x night Stream: strong Leaking: no Post void dripping: no Wearing pads/ Depends: no Urge incontinence: no Stress incontinence: no Incontinence without Sensory Awareness: no Abdominal pain: no Flank pain: no Sexual complaints: none History of Present Illness Tests reviewed: reviewed UA, referral records. I have reviewed the previous health record information and history for this patient from Teresa Thomas CNP. I have reviewed and verified the staff HPI to be accurate for this encounter. There have been no associated fever, chills, flank pain, or blood in the urine. Denies any urinary infections since last encounter. Review of Systems PHQ Score Initial Depression Screen Score: 0 ROS - Provider Constitutional: denies weight loss, denies hot flashes. Eyes: denies eye problems. Gastrointestinal: denies nausea, denies vomiting. Cardiovascular: denies chest pain or angina. Integumentary: no dryness Musculoskeletal: denies musculoskeletal symptoms. ENMT: denies otolaryngeal symptoms. Respiratory: no shortness of breath. Heme/Lymph: denies easy bleeding tendency, denies easy bruising tendency. Psychiatric: no confusion, no anxiety. Genitourinary: See HPI. Physical Exam Vitals & Measurements BP: 138/74 HT: 72 in HT: 184 cm WT: 119 kg WT: 261.8 lb BMI: 35.15 General Appearance: alert, no distress, well nourished, well developed male. Head: normocephalic . Eyes: normal orbit and globe. ENMT: normal examination of external ears. Chest: Lungs CTA, respirations non labored. Cardiovascular: regular rate and rhythm. Abdomen: soft, non distended, no tenderness, no mass or organomegaly, no hernia. Genitourinary: left epididymis a little tender. Mild hydrocele. Flank Pain: none. Bladder: nonpalpable. Penis: normal shaft, normal glans. Lymph Nodes: unremarkable palpation of the cervical area. Skin: warm, dry, no bruising. Psychiatric: cooperative, affect appropriate for age, normal judgement, euthymic mood. Assessment/Plan 1. Nocturia (R35.1: Nocturia) Mitzy is a 37 yo male new patient referred by Teresa Thomas CNP for ED. UA today negative for blood and infection. Pt states he is not here for ED. Tried lasting cream in March, made his penis numb for 5 days. Also c/o nocturia and testicular pain. Good stream, empties well. Nocturia 2-5x/night, large voids. Still gets up at least twice when he withholds fluids. Voids q1-2hr during the day. Does not drink a lot of fluids during the day. Urinary complaints started 6 mos ago. 2. Testicular pain (N50.819: Testicular pain, unspecified) Ongoing for 6 months. Has resonating pain in testicles not the scrotum, varies left and right side. Denies pain with urination or ejaculation. Discussed scrotal US, if abnormal, possible tx with abx. PE: left epididymis a little tender. Mild hydrocele. Follow up after US or sooner if needed. Pt understands and agrees with plan. -scrotal US Follow-up With When Contact Information Deven YATES MD, URL [facility] [address] [place] [address]- Additional Instructions: schedule scrotal us Patient Education Testicular Self-Exam I, Crissy Bella, personally scribed for Dr. Yates on 04/18/2022 11:31:52. . Documentation recorded by the scribe, Crissy Bella, accurately reflects the services(s) I performed and decisions made by me. Authenticated by Dr. Yates on 04/18/2022 11:40:24. Problem List/Past Medical History Ongoing Arthralgia Hyperlipidemia Hypothyroidism Nocturia Obstructive sleep apnea Testicular pain Testosterone deficiency Historical No qualifying data Medications levothyroxine Allergies No Known Medication Allergies Social History Tobacco Never (less than 100 in lifetime) Tobacco Use:. Never Smokeless Tobacco Use:., 04/18/2022 Family History Cancer: Mother. Diabetes mellitus type 2: Father. Heart disease: Mother. Hypertension: Mother. Lab Results Ambulatory Point of Care Results Bilirubin Urine Dipstick: Negative (04/18/22 10:59:00) Blood Urine Dipstick: Negative (04/18/22 10:59:00) Glucose Urine Dipstick: Negative (04/18/22 10:59:00) Ketones Urine D (more content not included)... Normal [facility] Comment on above: Result Comment: Elec tronically Signed By: Deven YATES MD\.br\Date and Time Signed: 04/18/22 11:40 EDT\.br\Electronically Co-Signed By: Crissy Bella\.br\Date and Time Co-Signed: 04/18/22 11:32 EDT QUANTIFERON TB GOLD PLUSon 0 02-16-2022 QuantiFERON Criteria Comment Normal [facility] Comment on above: Result Comment: Lester tiFERON-TB Gold Plus is a qualitative indirect test for M tuberculosis infection (including disease) and is intended for use in conjunction with risk assessment, radiography, and other medical and diagnostic evaluations. The QuantiFERON-TB Gold Plus result is determined by subtracting the Nil value from either TB antigen (Ag) value. The Mitogen tube serves as a control for the test. Performed By: #### Q NTTB #### [facility] [address] [place] [address] Dr. Christina Cowart QuantiFERON Incubation Incubation performed. Normal [facility] Comment on above: Performed By: #### Q NTTB #### [facility] [address] [place] [address] Dr. Christina Cowart QuantiFERON Mitogen Value >10.00 Normal [facility] Comment on above: Performed By: #### Q NTTB #### [facility] [address] [place] [address] Dr. Christina Cowart QuantiFERON Nil Value 0.04 IU/mL Normal [facility] Comment on above: Performed By: #### Q NTTB #### [facility] [address] [place] [address] Dr. Christina Cowart QuantiFERON TB1 Ag Value 0.04 IU/mL Normal [facility] Comment on above: Performed By: #### Q NTTB #### [facility] [address] [place] [address] Dr. Christina Cowart QuantiFERON TB2 Ag Value 0.04 IU/mL Normal [facility] Comment on above: Performed By: #### Q NTTB #### [facility] [address] [place] [address] Dr. Christina Cowart QuantiFERON-TB Gold Plus Negative Normal Negative [facility] Comment on above: Result Comment: No r esponse to M tuberculosis antigens detected. Infection with M tuberculosis is unlikely, but high risk individuals should be considered for additional testing (ATS/IDSA/CDC Clinical Practice Guidelines, 2017). The reference range is an Antigen minus Nil result of <0.35 IU/mL. Chemiluminescence immunoassay methodology Performed By: #### Q NTTB #### [facility] [address] [place] [address] Dr. Christina Cowart HEPATITIS B SURFACE ANTIBODY , QUANTon 02-15-2022 Hepatitis B Surf AB Quant 20.9 mIU/mL Normal Immunity>9.9 [facility] Comment on above: Result Comment: Stat us of Immunity Anti-HBs Level Inconsistent with Immunity 0.0 - 9.9 Consistent with Immunity >9.9 Performed By: #### H EPBSRF #### [facility] [address] [place] [address] Dr. Christina Cowart MMR IMMUNITYon 3 Mumps Abs, IgG 51.3 AU/mL Normal Immune >10.9 [facility] Comment on above: Result Comment: Nega tive <9.0 Equivocal 9.0 - 10.9 Positive >10.9 A positive result generally indicates past exposure to Mumps virus or previous vaccination. Performed By: #### M MRIMMU #### [facility] [address] [place] [address] Dr. Christina Cowart Rubella Antibodies, IgG 10.10 index Normal Immune >0.9 9 [facility] Comment on above: Result Comment: Non- immune <0.90 Equivocal 0.90 - 0.99 Immune >0.99 Performed By: #### M MRIMMU #### [facility] [address] [place] [address] Dr. Christina Cowart Rubeola Ab, IgG >300.0 Normal Immune >16.4 [facility] Comment on above: Result Comment: Nega tive <13.5 Equivocal 13.5 - 16.4 Positive >16.4 Presence of antibodies to Rubeola is presumptive evidence of immunity except when acute infection is suspected. Performed By: #### M MRIMMU #### [facility] [address] [place] [address] Dr. Christina Cowart VARICELLA IGG ABon 3 Varicella Zoster IgG 2374 index Normal Immune >165 [facility] Comment on above: Result Comment: Nega tive <135 Equivocal 135 - 165 Positive >165 A positive result generally indicates exposure to the pathogen or administration of specific immunoglobulins, but it is not indication of active infection or stage of disease. Performed By: #### V ROMAN #### [facility] [address] [address] [address] Christina Cowart Body fluid albumin measureme nt (mass/volume)Ordered By: Kae Wallace on 09-13-2021 Albumin (Body fld) [Mass/Vol] 4.2 g/dL 3.2-5.5 [facility] Cholesterol [Mass/volume] in Serum or PlasmaOrdered By: Kae Wallace on 09-13-2021 Cholesterol [Mass/Vol] 212 mg/dL 140-200 [facility] Comment on above: Chol less than 200 m g/dl low risk Chol 201-239 mg/dl borderline risk Chol 240 mg/dl and greater high risk Cholesterol in LDL Calc [Mas s/Vol]Ordered By: Kae Wallace on 09-13-2021 Cholesterol in LDL [Mass/Vol] 155 mg/dL 0-100 [facility] Comment on above: LDL ATP III CLASSIFI CATION LDL less than 100 mg/dL Optimal LDL 100-129 mg/dL Near or above optimal LDL 130-159 mg/dL Borderline high LDL 160-189 mg/dL High LDL greater than 189 mg/dL Very high Cholesterol in VLDL Calc [Ma ss/Vol]Ordered By: Kae Wallace on 09-13-2021 Cholesterol in VLDL [Mass/Vol] 21 mg/dL [facility] Comprehensive Metabolic Empo n 09-13-2021 Albumin [Mass/Vol] 4.2 g/dL Normal 3.2-5.5 [facility] Comment on above: Performed By: #### E BS LIPID, EBS CMP #### [facility] [address] [place] [address] [place] #### MMR IMMUN, VZIGG #### [facility] , Albumin/Globulin [Mass ratio] 1.5 {ratio} Normal [facility] Comment on above: Performed By: #### E BS LIPID, EBS CMP #### [facility] [address] [place] [address] [place] #### MMR IMMUN, VZIGG #### [facility] , ALP [Catalytic activity/Vol] 86 U/L Normal 32-92 [facility] Comment on above: Performed By: #### E BS LIPID, EBS CMP #### [facility] [address] [place] [address] [place] #### MMR IMMUN, VZIGG #### [facility] , ALT [Catalytic activity/Vol] 48 U/L Normal 10-60 [facility] Comment on above: Performed By: #### E BS LIPID, EBS CMP #### [facility] [address] [place] [address] [place] #### MMR IMMUN, VZIGG #### [facility] , AST [Catalytic activity/Vol] 35 U/L Normal 10-42 [facility] Comment on above: Performed By: #### E BS LIPID, EBS CMP #### [facility] [address] [place] [address] [place] #### MMR IMMUN, VZIGG #### [facility] , Bilirubin [Mass/Vol] 0.8 mg/dL Normal 0.3-1.2 [facility] Comment on above: Performed By: #### E BS LIPID, EBS CMP #### [facility] [address] [place] [address] [place] #### MMR IMMUN, VZIGG #### [facility] , Calcium [Mass/Vol] 9.6 mg/dL Normal 8.2-10.2 [facility] Comment on above: Performed By: #### E BS LIPID, EBS CMP #### [facility] [address] [place] [address] [place] #### MMR IMMUN, VZIGG #### [facility] , Chloride [Moles/Vol] 98 mmol/L Normal 95-114 [facility] Comment on above: Performed By: #### E BS LIPID, EBS CMP #### [facility] [address] [place] [address] [place] #### MMR IMMUN, VZIGG #### [facility] , CO2 [Moles/Vol] 27.9 mmol/L Normal 22.0-30.0 [facility] Comment on above: Performed By: #### E BS LIPID, EBS CMP #### [place] [address] [place] #### MMR IMMUN, VZIGG #### [facility] , Creatinine [Mass/Vol] 0.96 mg/dL Normal 0.64-1.27 [facility] Comment on above: Performed By: #### E BS LIPID, EBS CMP #### [place] [address] [place] #### MMR IMMUN, VZIGG #### [facility] , Estimated GFR ( Sharyn > 60 [facility] Comment on above: Result Comment: GFR estimated reference range: According to KDOQI guidelines, <60 ml/min/1.73m2 is sufficient to diagnose a patient with chronic kidney disease. Performed By: #### E BS LIPID, EBS CMP #### [place] [address] [place] #### MMR IMMUN, VZIGG #### [facility] , Estimated GFR (Non- Am > 60 [facility] Comment on above: Performed By: #### E BS LIPID, EBS CMP #### [place] [address] [place] #### MMR IMMUN, VZIGG #### [facility] , Globulin (S) [Mass/Vol] 2.8 g/dL Normal [facility] Comment on above: Performed By: #### E BS LIPID, EBS CMP #### [place] [address] [place] #### MMR IMMUN, VZIGG #### [facility] , Glucose [Mass/Vol] 95 mg/dL Normal 70-100 [facility] Comment on above: Performed By: #### E BS LIPID, EBS CMP #### [place] [address] [place] #### MMR IMMUN, VZIGG #### [facility] , Potassium [Moles/Vol] 4.2 mmol/L Normal 3.5-5.1 [facility] Comment on above: Performed By: #### E BS LIPID, EBS CMP #### [facility] [address] [place] [address] [place] #### MMR IMMUN, VZIGG #### [facility] , Protein [Mass/Vol] 7.0 g/dL Normal 6.1-7.9 [facility] Comment on above: Performed By: #### E BS LIPID, EBS CMP #### [facility] [address] [place] [address] [place] #### MMR IMMUN, VZIGG #### [facility] , Sodium [Moles/Vol] 137 mmol/L Normal 136-146 [facility] Comment on above: Performed By: #### E BS LIPID, EBS CMP #### [facility] [address] [place] [address] [place] #### MMR IMMUN, VZIGG #### [facility] , Urea nitrogen [Mass/Vol] 10 mg/dL Normal 9-23 [facility] Comment on above: Performed By: #### E BS LIPID, EBS CMP #### [facility] [address] [place] [address] [place] #### MMR IMMUN, VZIGG #### [facility] , Creatinine and Glomerular fi ltration rate.predicted panel (S/P/Bld)Ordered By: Kae Wallace on 09-13-2021 Creatinine [Mass/Vol] 0.96 mg/dL 0.64-1.27 [facility] Estimated glomerular filtrat ion rate (GFR) non- AmericanOrdered By: Kae Wallace on 09-13-2021 GFR/1.73 sq M.predicted among non-blacks MDRD (S/P/Bld) [Vol rate/Area] > 60 mL/Min [facility] Globulin Calc (S) [Mass/Vol] Ordered By: Kae Wallace on 09-13-2021 Globulin (S) [Mass/Vol] 2.8 g/dL [facility] - Chemistry and C hemistry - challengeOrdered By: Kae Wallace on 09-13-2021 Glucose [Mass/Vol] 95 mg/dL 70-100 [facility] Lipid Profileon 09-13-2021 Cholesterol [Mass/Vol] 212 mg/dL High 140-200 [facility] Comment on above: Result Comment: Chol less than 200 mg/dl low risk Chol 201-239 mg/dl borderline risk Chol 240 mg/dl and greater high risk Performed By: #### E BS LIPID, EBS CMP #### [facility] [address] [place] [address] [place] #### MMR IMMUN, VZIGG #### [facility] , Cholesterol in HDL [Mass/Vol] 35 mg/dL Normal 29-71 [facility] Comment on above: Result Comment: HDL CHOL ATP-III CLASSIFICATION Cardiovascular Risk HDL > or equal to 60 mg/dL LOW HDL < 40 mg/dL HIGH Performed By: #### E BS LIPID, EBS CMP #### [facility] [address] [place] [address] [place] #### MMR IMMUN, VZIGG #### [facility] , Cholesterol.total/Ember sterol in HDL [Mass ratio] 6.1 {ratio} Normal <5.0 [facility] Comment on above: Result Comment: PERF ORMED BY: [place] [address] PATHOLOGIST [employer]WAY CONTROLLER ISAIAH DUNCAN M.D. Performed By: #### E BS LIPID, EBS CMP #### [facility] [address] [place] [address] [place] #### MMR IMMUN, VZIGG #### [facility] , LDL Cholesterol,Calculated 155 mg/dL High 0-100 [facility] Comment on above: Result Comment: LDL ATP III CLASSIFICATION LDL less than 100 mg/dL Optimal LDL 100-129 mg/dL Near or above optimal LDL 130-159 mg/dL Borderline high LDL 160-189 mg/dL High LDL greater than 189 mg/dL Very high Performed By: #### E BS LIPID, EBS CMP #### [place] [address] [place] #### MMR IMMUN, VZIGG #### [facility] , Triglyceride w/Reflex 108 mg/dL Normal 35-149 [facility] Comment on above: Result Comment: TRIG ATP III CLASSIFICATION TRIG less than 150 mg/dL Normal TRIG 150-199 mg/dL Borderline high TRIG 200-500 mg/dL High TRIG greater than 500 mg/dL Very high Standard traceable to the Center for Disease Conrtrol and Prevention (CDC) test method. Performed By: #### E BS LIPID, EBS CMP #### [place] [address] [place] #### MMR IMMUN, VZIGG #### [facility] , VLDL CHOLESTEROL 21 mg/dL Normal [facility] Comment on above: Performed By: #### E BS LIPID, EBS CMP #### [address] #### MMR IMMUN, VZIGG #### [facility] , MMR Immunity Profileon 09-13 Mumps Antibodies, IgG 52.2 Normal Immune >10.9 [facility] Comment on above: Result Comment: Nega tive <9.0 Equivocal 9.0 - 10.9 Positive >10.9 A positive result generally indicates past exposure to Mumps virus or previous vaccination. PERFORMED BY: [place] [address] PATHOLOGIST [employer]WAY CONTRO[employer]ER ISAIAH DUNCAN M.D. Performed By: #### E BS LIPID, EBS CMP #### [place] [address] [place] #### MMR IMMUN, VZIGG #### [facility] , Rubella Ab, IgG 12.20 Normal Immune >0.99 [facility] Comment on above: Result Comment: Non- immune <0.90 Equivocal 0.90 - 0.99 Immune >0.99 Performed By: #### E BS LIPID, EBS CMP #### [facility] [address] [place] [address] [place] #### MMR IMMUN, VZIGG #### [facility] , Rubeola Ab, IgG >300.0 Normal Immune >16.4 [facility] Comment on above: Result Comment: Nega tive <13.5 Equivocal 13.5 - 16.4 Positive >16.4 Presence of antibodies to Rubeola is presumptive evidence of immunity except when acute infection is suspected. Performed By: #### E BS LIPID, EBS CMP #### [facility] [address] [place] [address] [place] #### MMR IMMUN, VZIGG #### [facility] , No Panel InformationOrdered By: Kae Wallace on 09-13-2021 TB Test (T-Spot) Sent to [facility] Estimated GFR () > 60 mL/Min [facility] Comment on above: GFR estimated refere nce range: According to KDOQI guidelines, <60 ml/min/1.73m2 is sufficient to diagnose a patient with chronic kidney disease. Pharmacy Creatinine Clearance (Chem N/A [facility] Rubella IgG Antibody 12.20 index Immune >0.99 [facility] Comment on above: Non-immune <0.90 Equivocal 0.90 - 0.99 Immune >0.99 Triglycerides Reflex 108 mg/dL 35-149 [facility] Comment on above: TRIG ATP III CLASSIF ICATION TRIG less than 150 mg/dL Normal TRIG 150-199 mg/dL Borderline high TRIG 200-500 mg/dL High TRIG greater than 500 mg/dL Very high Standard traceable to the Center for Disease Conrtrol and Prevention (CDC) test method. Protein [Mass/volume] in Ser um or PlasmaOrdered By: Kae Wallace on 09-13-2021 Protein [Mass/Vol] 7.0 g/dL 6.1-7.9 [facility] Serum Varicella zoster virus IgG antibody assay by immunoassay (units/volume)Ordered By: Kae Wallace on 09-13-2021 VZV IgG IA Qn (S) 2354 index Immune >165 [facility] Comment on above: Negative <135 Equivocal 135 - 165 Positive >165 A positive result generally indicates exposure to the pathogen or administration of specific immunoglobulins, but it is not indication of active infection or stage of disease. Performed at: [facility] [address] [id number] Repeat Photocomposing Machine Operator: Pablo Dobbins PhD, Phone: [phone] Serum measles virus IgG anti body assay by immunoassay (units/volume)Ordered By: Kae Wallace on 09-13-2021 MeV IgG IA Qn (S) >300.0 AU/mL Immune >16.4 [facility] Comment on above: Negative <13.5 Equivocal 13.5 - 16.4 Positive >16.4 Presence of antibodies to Rubeola is presumptive evidence of immunity except when acute infection is suspected. Serum mumps virus IgG antibo dy assay (units/volume)Ordered By: Kae Wallace on 09-13-2021 MuV IgG Qn (S) 52.2 AU/mL Immune >10.9 [facility] Comment on above: Negative <9.0 Equivocal 9.0 - 10.9 Positive >10.9 A positive result generally indicates past exposure to Mumps virus or previous vaccination. Serum or plasma alanine ryan otransferase measurement without P-5'-P (enzymatic activiOrdered By: Kae Wallace on 09-13-2021 ALT No additional P-5'-P [Catalytic activity/Vol] 48 U/L 10-60 [facility] Serum or plasma albumin/glob ulin mass ratioOrdered By: Kae Wallace on 09-13-2021 Albumin/Globulin [Mass ratio] 1.5 {ratio} [facility] Serum or plasma alkaline ilan sphatase measurement (enzymatic activity/volume)Ordered By: Kae Wallace on 09-13-2021 ALP [Catalytic activity/Vol] 86 U/L 32-92 [facility] Serum or plasma aspartate am inotransferase measurement (enzymatic activity/volume)Ordered By: Kae Wallace on 09-13-2021 AST [Catalytic activity/Vol] 35 U/L 10-42 [facility] Serum or plasma calcium huey urement (mass/volume)Ordered By: Kae Wallace on 09-13-2021 Calcium [Mass/Vol] 9.6 mg/dL 8.2-10.2 [facility] Serum or plasma chloride chuckie surement (moles/volume)Ordered By: Kae Wallace on 09-13-2021 Chloride [Moles/Vol] 98 mmol/L 95-114 [facility] Serum or plasma high density lipoprotein (HDL) cholesterol measurementOrdered By: Kae Wallace on 09-13-2021 Cholesterol in HDL [Mass/Vol] 35 mg/dL 29-71 [facility] Comment on above: HDL CHOL ATP-III CLA SSIFICATION Cardiovascular Risk HDL > or equal to 60 mg/dL LOW HDL < 40 mg/dL HIGH Serum or plasma potassium me asurement (moles/volume)Ordered By: Kae Wallace on 09-13-2021 Potassium [Moles/Vol] 4.2 mmol/L 3.5-5.1 [facility] Serum or plasma sodium measu rement (moles/volume)Ordered By: Kae Wallace on 09-13-2021 Sodium [Moles/Vol] 137 mmol/L 136-146 [facility] Serum or plasma total biliru bin measurement (mass/volume)Ordered By: Kae Wallace on 09-13-2021 Bilirubin [Mass/Vol] 0.8 mg/dL 0.3-1.2 [facility] Serum or plasma total carbon dioxide measurement (moles/volume)Ordered By: Kae Wallace on 09-13-2021 CO2 [Moles/Vol] 27.9 mmol/L 22.0-30.0 [facility] Serum or plasma total choles terol/high density lipoprotein (HDL) cholesterol mass ratOrdered By: Kae Wallace on 09-13-2021 Cholesterol.total/Ember sterol in HDL [Mass ratio] 6.1 {ratio} <5.0 [facility] Serum or plasma urea nitroge n measurement (mass/volume)Ordered By: Kae Wallace on 09-13-2021 Urea nitrogen [Mass/Vol] 10 mg/dL 9- [facility] T SPOT TB TESTon 09-13-2021 T SPOT TB TEST Sent to [facility] Normal Fi [facility] Comment on above: Result Comment: PERF ORMED BY: [place] [address] PATHOLOGIST [employer] CONTROLLER ISAIAH DUNCAN M.D. Performed By: #### C HC T SPOT #### [address] Varicella IgG Antibodyon Varicella IgG Antibody 2354 Normal Immune >165 [facility] Comment on above: Result Comment: Nega tive <135 Equivocal 135 - 165 Positive >165 A positive result generally indicates exposure to the pathogen or administration of specific immunoglobulins, but it is not indication of active infection or stage of disease. Performed at: [facility] [address] [id number] Repeat Photocomposing Machine Operator: Pablo Dobbins PhD, Phone: [phone] Performed By: #### E BS LIPID, EBS CMP #### [facility] [address] [place] [address] #### MMR IMMUN, VZIGG #### [facility] , THYROGLOBULIN ABon Thyroglobulin Antibody >2250.0 Abnormal 0.0-0.9 Th [facility] Comment on above: Result Comment: Thyr oglobulin Antibody measured by Vicky Justyn Methodology Performed By: #### T HYGAB #### [facility] [address] [address] [address] Christina Cowart THYROID PEROXIDASE ABon 02-07 Thyroid Peroxidase (TPO) Ab >600 Critically high 0-34 [facility] Comment on above: Performed By: #### T POAB #### [facility] [address] [address] [address] Christina Cowart FREE T3on 03-01-2021 FREE T3 2.86 pg/mlL Normal 2.77-5.27 [facility] Comment on above: Performed By: #### T SH, FT3 #### [facility] [address] [place] [address] Dr. Christina Cowart FREE T4on 03-01-2021 Free T4 [Mass/Vol] 1.02 ng/dL Normal 0.78-2.19 [facility] Comment on above: Performed By: #### F T4 #### [facility] [address] [address] [address] Christina Cowart TSHon 03-01-2021 TSH 4.949 uIU/mL Critically high 0.470-4.680 [facility] Comment on above: Performed By: #### T SH, FT3 #### [facility] [address] [address] [address] Christina Cowart TSH RANGE SEE BELOW Normal [facility] Comment on above: Result Comment: <0.3 4 UIU/ml HYPERTHYROID 0.34-5.60 UIU/ml EUTHYROID >5.60 UIU/ml HYPOTHYROID Performed By: #### T SH, FT3 #### [facility] [address] [address] [address] Christina Cowart Vital Signs Date Time Vital Sign Value Performing Clinician Faci lity 04-18-2022 11:08-0400 Blood Pressure Location Deven YATES [facility] 04-18-2022 11:08-0400 Diastolic blood pressure 74 mm[Hg] Deven YATES [facility] 04-18-2022 11:08-0400 Systolic blood pressure 138 mm[Hg] Deven YATES [facility] 12-28-2020 17:00-0500 Body height 182.88 cm Alex Delgado Other [facility] Other Encounters Encounter Date Encounter Type Care Provider Facility Start: 01-17-2023 End: 01-17-2023 ambulatory TERESA SMITH Not Available Start: 04-18-2022 End: 04-19-2022 ambulatory TERESA SMITH Facility:[facility] Start: 04-18-2022 End: 04-18-2022 Patient encounter procedure Deven Smith PAULINE [facility] Start: 03-23-2022 ambulatory TERESA SMITH Facility: [facility] Start: 02-14-2022 End: 02-15-2022 ambulatory ANNITA AGUILERA Facility:[facility] Start: 09-13-2021 End: 09-13-2021 Departed Referred SHOOK SPLICER Kae Chavezer Work Phone: [facility] [place] Start: 03-01-2021 End: 03-02-2021 ambulatory SHINGLE PACKER TERESA SMITH Facility:[facility] Start: 12-28-2020 End: 12-28-2020 ambulatory Alex Delgado Other [facility] Other Start: 12-28-2020 Office outpatient vi sit 15 minutes Alex Delgado [facility] Payers Date Payer Category Payer Unknown [id number] 1985 Unknown [id number] 1985 Unknown [id number] 1959 Self-pay [id number] 1959 Unknown [id number] Medicaid [facility] [id number] [id number] Unknown [id number] Social History Date Type Detail Facility Unknown if ever smoked [facility] Other Sex Assigned At [facility] Start: 1985 Sex Assigned At [facility] Start: 04-18-2022 Tobacco smoking status Never s moked tobacco (finding) [facility] Tobacco smoking status Never [facility] Functional Status Date Assessment Result Facility 04-18-2022 Functional Status N/A [facility] Hospital Discharge instructions 04-18-2022 Note Date & Type Note Facility 04-18-2022 Hospital Discharg e instructions Patient Education 04/18/2022 11:31:39 Testicular Self-Exam Testicular Self-Exam A self-examination of your testicles (testicular self-exam) involves looking at and feeling your testicles for abnormal lumps or swelling. Several things can cause swelling, lumps, or pain in your testicles. Some of these causes are: Injuries. Inflammation. Infection. Buildup of fluids around your testicle (hydrocele). Twisted testicles (testicular torsion). Testicular cancer. Why is it important to do a testicular self-exam? Self-examination of the testicles and the left and right groin areas may be recommended if you are at risk for testicular cancer. Your groin is where your lower abdomen meets your upper thighs. You may be at risk for testicular cancer if you have: An undescended testicle (cryptorchidism). A history of previous testicular cancer. A family history of testicular cancer. How to do a testicular self-exam The testicles are easiest to examine after a warm bath or shower. They are more difficult to examine when you are cold. This is because the muscles attached to the testicles retract and pull them up higher or into the abdomen. A normal testicle is egg-shaped and feels firm. It is smooth and not tender. The spermatic cord can be felt as a firm, spaghetti-like cord at the back of your testicle. Look and feel for changes Stand and hold your penis away from your body. Look at each testicle to check for lumps or swelling. Roll each testicle between your thumb and forefinger, feeling the entire testicle. Feel for: ?Lumps. ?Swelling. ?Discomfort. Check the groin area between your abdomen and upper thighs on both sides of your body. Look and feel for any swelling or bumps that are tender. These could be enlarged lymph nodes. Contact a health care provider if: You find any bumps or lumps, such as a small, hard, pea-sized lump. You find swelling, pain, or soreness. You see or feel any other changes in your testicles. Summary A self-examination of your testicles (testicular self-exam) involves looking at and feeling your testicles for any changes. Self-examination of the testicles and the left and right groin areas may be recommended if you are at risk for testicular cancer. You should check each of your testicles for lumps, swelling, or discomfort. You should check for swelling or tender bumps in your groin area between your lower abdomen and upper thighs. This information is not intended to replace advice given to you by your health care provider. Make sure you discuss any questions you have with your health care provider. Document Released: 05/01/2001 Document Revised: 05/16/2019 Document Reviewed: 12/19/2016 [employer] Patient Education 2020 [employer]. Follow Up Care 03/23/2022 10:42:49 With:PAULINE NAVAS, Deven Smith, URL Address: [facility] [address] , [place] [address]- When: Unknown [facility] Evaluation note 12-28-2020 Note Date & Type Note Facility 12-28-2020 Evaluation note Encounter Date Diagnosis Assessment Notes Dec, Acute pain of right knee (ICD-10 - M25.561) Dec, Patellar tendinitis, right knee (ICD-10 - M76.51) Mitzy presents with right patellar tendinitis with history of vascular disorders and questionable tibial tubercle avulsion. At this juncture we have discussed the findings and diagnosis as well as personally reviewed appropriate imaging and performed interpretation of related testing and examination with the patient in office today. Prior medical notes from SATHYA Thomas and history have been reviewed. At this time he has completed physical therapy without improvement The patient has been involved in our cooperative treatment plan and agrees to move forward with treatment at this time. Dec, Internal derangement of right knee (ICD-10 - M23.91) Tristian returns today with ongoing right knee pain. We have treated him with physical therapy, Medrol Dosepak and anti-inflammatori es. He has completed physical therapy with improvement motion but continues to complain of joint line tenderness with painful Scott's. At this point would obtain MRI to evaluate for internal derangement. We will plan for follow-up after MRI is obtained I have concern for meniscal tear versus other internal derangement based on the history of this condition and physical exam findings. This condition could require surgical treatment. An MRI will be necessary to plan futher treatment. Per patient request, MRI order will be sent to [facility] Other Evaluation + Plan note Note Date & Type Note Facility Evaluation + Plan note No data available for this section [facility] Evaluation note Note Date & Type Note Facility Evaluation note No assessment information availa [facility] Work Phone: History general Narrative - Reported Note Date & Type Note Facility History general Narrative - Reported Type Medical History hypercholesterolemia Surgical History achilles tendon repair- right Surgical History bone spur -right [facility] Other [facility] note Note Date & Type Note Facility [facility] note No data available for this section [facility] Summary Purpose Family History No Family History Records FoundNo Family History Records FoundNo Family History Records FoundNo Family History Records Found Advance Directives No Advanced Directives Records FoundNo Advanced Directives Records FoundNo Advanced Directives Records FoundNo Advanced Directives Records Found Chief Complaint and Reason for Visit Chief Complaint LAB - Return [facility]otin e to [facility] Additional Source Comments REASON FOR VISIT (unrecogniz ed section and content) Recheck Right Knee (unrecognized sect ion and content) No Status Records FoundNo Status Records FoundNo Status Records FoundNo Status Records Found INFORMATION SOURCE (unrecogn ized section and content) DATE CREATED AUTHOR 09/14/2021 [facility] DATE CREATED AUTHOR AUTHOR'S ORGANIZ ATION 02/17/2022 [facility] DATE CREATED AUTHOR AUTHOR'S ORGANIZ ATION 04/23/2022 [facility] DATE CREATED AUTHOR AUTHOR'S ORGANIZ ATION 01/19/2023 [facility] [employer] Care Teams (unrecognized sec tion and content) Team Status: Inactive Member Role Status Dates Kae Wallace APRN Attending Provider Active PHYSICIAN NO FAMILY Primary Care Provider Active Team Status: Active Member Role Status Dates PHYSICIAN NO FAMILY Primary Care Provider Active Goals (unrecognized section and content) Goals may be documented in a n alternate section FOR RECORDS PERTAINING TO PATIENTS WHO ARE OR HAVE BEEN ENROLLED IN A CHEMICAL DEPENDENCY/SUBSTANCEABUSE PROGRAM, SOME INFORMATION MAY BE OMITTED. This clinical summary was aggregated from multiple sources. Caution should be exercised in using it in the provision of clinical care. This summary normalizes information from multiple sources, and as a consequence, information in this document may materially change the coding, format and clinical context of patient data. In addition, data may be omitted in some cases. CLINICAL DECISIONS SHOULD BE BASED ON THE PRIMARY CLINICAL RECORDS. [facility]. provides no warranty or guarantee of the accuracy or completeness of information in this document.
--- NOTE | 2023-02-08 03:02 | PC.NURSE ---
Pt presents to ER for allergic reaction like symptoms Pt has had a history over the last few years of having these reactions to an unknown irritant but they are becoming more frequent over the last few months sometimes resulting in airway closure and facial/oral swelling Tonight around 10pm pt states he began experiencing hives/rash at home and took 50 of Benadryl and 40 of Pepcid at home Pt then went to [facility] where his spouse works and was given sub q epi, solu medrol, zofran, and IV Pepcid Pt was deemed safe to go home In route between the ER and home here in [place] pt again broke out in a rash and hives mainly on his back and buttocks but throughout other areas of his body as well pt states he is begining to feel very fatigued from the Benadryl but is afraid to go to sleep in fear of his airway swelling and not being aware Pt states his throat feels scratchy But on assessment while this nurse was in the room, no swelling is present to the oropharynx Pt was relieved to hear this information
[2023-02-08] MEDS: FAMOTIDINE/PF 20 MG/2 ML VIAL IV (03:16)
[2023-02-08] MEDS: 0.9 % SODIUM CHLORIDE 1,000 ML 1000 ML IV (03:16)
[2023-02-08] MEDS: DIPHENHYDRAMINE HCL 50 MG/ML (1ML) VIAL 25 MG IV (03:16)
[2023-02-08 03:22] LABS: Basophils Percent Auto 0.1 % (0.2-2.0); Eosinophils Absolute Auto 0.1 10^3/uL (0.0-0.7); Eosinophils Percent Auto 0.4 % (0.9-7.0); Hematocrit 49.3 % (42.0-54.0); Immature Granulocytes Abs Auto 0.05 10^3/uL (0.00-0.03); Immature Granulocytes Pct Auto 0.3 % (0.0-0.5); Lymphocytes Absolute Auto 1.1 10^3/uL (1.2-3.8); Lymphocytes Percent Auto 7.1 % (20.5-60.0); Mean Corpuscular HGB Conc 34.5 g/dL (29.9-35.2); Mean Corpuscular Hemoglobin 31.6 pg (25.9-34.0); Mean Corpuscular Volume 91.6 fL (80.0-94.0); Mean Platelet Volume 9.7 fL (9.5-13.5); Monocytes Absolute Auto 0.6 10^3/uL (0.3-0.8); Monocytes Percent Auto 3.9 % (1.7-12.0); Neutrophils Absolute Auto 14.1 10^3/uL (1.4-6.5); Neutrophils Percent Auto 88.2 % (43.0-75.0); Platelet Count 345 10^3/uL (150-450); Red Blood Count 5.38 10^6/uL (4.70-6.10); Red Cell Distribution Width 11.9 % (11.0-15.0)
[2023-02-08 03:27] LABS: Anion Gap 13.3; BUN Creatinine Ratio 10.1; Carbon Dioxide 27.5 mmol/L (21.0-32.0); Chloride 104 mmol/L (98-107); Estimated GFR (African America >60 (>=60); Estimated GFR (Non-African Ame >60 (>=60); Glucose 174 mg/dL (74-106); Potassium 3.8 mmol/L (3.5-5.1); Sodium 141 mmol/L (136-145)
[2023-02-08 03:30] VITALS: BP 119/73
[2023-02-08] MEDS: EPINEPHRINE HCL PF 1 MG/ML AMPULE 0.3 MG SUBQ (03:42)
[2023-02-08] MEDS: DEXAMETHASONE SOD PHOS 10 MG/ML VIAL IV (03:43)
--- NOTE | 2023-02-08 03:57 | CT_ITS ---
The [address] [address] Patient Name: MITZY JASSO MRN: [id number] date: 1985 Sex: M Assigned Patient Location: ER Current Patient Location: ER Accession/Order Number: [id number] Exam Date: 02/08/2023 04:11 Report Date: 02/08/2023 04:59 At the request of: ARNULFO MARKER Procedure: CT abdomen pelvis wo con EXAM: CT abdomen pelvis wo con HISTORY: abd bloating COMPARISON: None. TECHNIQUE: Noncontrast axial CT images through the abdomen and pelvis were obtained with coronal and sagittal reformats. Dose reduction techniques were achieved by using automated exposure control and/or adjustment of mA and/or kV according to patient size and/or use of iterative reconstruction technique. FINDINGS: A calcified granuloma is seen in the right lower lobe. A calcified granuloma is seen in the left lower lobe. Abdomen: Please note that the sensitivity for detection of focal lesions or vascular disease is markedly reduced without intravenous contrast. The liver and spleen are unremarkable. There is no intra or extrahepatic biliary duct dilatation. The gallbladder is unremarkable. There punctate nonobstructive renal calculi. Otherwise, the pancreas, adrenal glands, kidneys, and bowel loops, including the appendix, are unremarkable. There is no mesenteric or retroperitoneal lymphadenopathy. Pelvis: The bladder demonstrates wall thickening with perivesicular fat stranding. The rectum is unremarkable. There is no iliac or inguinal lymphadenopathy. Bone windows show no aggressive osseous lesions. CT/CT abdomen pelvis wo con IMPRESSION: 1. No evidence of bowel obstruction. 2. Nonobstructive renal calculi. 3. Normal appendix. 4. Urinary bladder wall thickening. Please correlate with urinalysis for infection. Electronically authenticated by: Francine CHEEMA Date: 02/08/2023 04:59
[2023-02-08 04:00] VITALS: BP 123/79
[2023-02-08 04:07] LABS: Bilirubin Urine SMALL (NEGATIVE); Blood Urine NEGATIVE (NEGATIVE); Clarity Urine CLEAR (CLEAR); Color Urine YELLOW (YELLOW); Glucose Urine UA NEGATIVE (NEGATIVE); Ketones Urine TRACE mg/dL (NEGATIVE); Leukocyte Esterase Urine NEGATIVE (NEGATIVE); Nitrite Urine NEGATIVE (NEGATIVE); Protein Urine TRACE mg/dL (NEG/TRACE); Specific Gravity Urine >=1.030 (1.005-1.025); pH Urine 5.5 (5.0-9.0)
[2023-02-08 04:16] LABS: Bacteria Urine SMALL #/HPF (NONE SEEN); Cast Seen? NONE SEEN #/LPF (NONE SEEN); Crystals Seen? None Seen #/HPF (None Seen); Mucus Urine LARGE (NONE SEEN); RBC Urine 0-2 #/HPF (0-2); Squamous Epithelial Cell Urine NONE SEEN #/LPF (NONE/RARE); WBC Urine 0-2 #/HPF (NONE SEEN)
[2023-02-08 04:30] VITALS: BP 115/67
[2023-02-08 05:34] LABS: Adenovirus NOT DETECTED (NOT DETECTE); Bordetella parapertussis NOT DETECTED (NOT DETECTE); Coronavirus 229E NOT DETECTED (NOT DETECTE); Coronavirus HKU1 NOT DETECTED (NOT DETECTE); Coronavirus NL63 NOT DETECTED (NOT DETECTE); Coronavirus OC43 NOT DETECTED (NOT DETECTE); Human Metapneumovirus NOT DETECTED (NOT DETECTE); Human Rhinovirus/Enterovirus NOT DETECTED (NOT DETECTE); Influenza A NOT DETECTED (NOT DETECTE); Influenza B NOT DETECTED (NOT DETECTE); Mycoplasma pneumoniae NOT DETECTED (NOT DETECTE); Parainfluenza Virus 1 NOT DETECTED (NOT DETECTE); Parainfluenza Virus 2 NOT DETECTED (NOT DETECTE); Parainfluenza Virus 3 NOT DETECTED (NOT DETECTE); Parainfluenza Virus 4 NOT DETECTED (NOT DETECTE); Respiratory Syncytial Virus NOT DETECTED (NOT DETECTE); SARS-CoV-2 NOT DETECTED (NOT DETECTE)
== END 2023-02-08 05:50 | disposition home or self-care (01) ==
PROVIDERS: Emergency Provider Emergency Medicine; PCP Nurse Practitioner
DX: L50.0 Allergic urticaria (principal); Z79.890 Hormone replacement therapy; Z20.822 Contact with and (suspected) exposure to COVID-19
CPT/HCPCS: 0202U; 36415; 74176; 80048; 81001; 85025; 87493; 96374; 96375; 99284; J1100; J1200